=== PATIENT | male | born 1945 | race Caucasian/White ===

== ENCOUNTER → 2018-01-27 | Outpatient (CLI) | payer MEDICARE ==
[~2018-01-27] MED LIST: ALEVE220 M1 PO; ASPIRIN81 MG PO; FUROSEMIDE40 MG PO; HYDRALAZINE HCL25 MG PO; LOSARTAN POTAS100 MG PO; POTASSIUM CHLO10 ME1 PO; PROPRANOLOL HCL80 MG PO; TAMSULOSIN HCL0.4 MG PO; VITAMIN D10000 UNIT PO
--- NOTE | 2018-01-27 10:29 | Diagnostic Imaging Report ---
PROCEDURE:X-RAY ABDOMEN - KUB COMPARISON:None. INDICATIONS:CALCULUS OF KIDNEY FINDINGS: 3 mm calcification projects over the lower pole of the left renal shadow. No additional calcifications project over the renal shadows or expected ureteral courses. Evaluation of the kidneys is limited by overlying bowel contents. Small radiodensities likely related to surgical mesh are identified projecting over the right and left paravertebral regions. Atherosclerotic vascular calcifications. No mass effect or organomegaly. Multilevel degenerative disc changes of the lumbar spine. Bowel gas pattern is nonobstructive. CONCLUSION: Suspected at 3 mm left lower pole renal calculus. No additional plain film evidence of urolithiasis, though evaluation is limited as above. Dictated by: David Mixon M.D. on 01/27/2018 at 10:38 Electronically approved by: David Mixon M.D. on 01/27/2018 at 10:38
== END ==
LOC: RAD 09:37
PROVIDERS: ATTEND Urology
DX: N20.0 Calculus of kidney (principal)
CPT/HCPCS: 74018

== ENCOUNTER 2018-07-07 08:25 | Inpatient (IN) | payer MEDICARE ==
[2018-07-05 11:22] LABS: BASOPHILS # (AUTO) 0.1 (0.0-0.1); BASOPHILS % 0.9 % (0.0-1.0); EOSINOPHILS # (AUTO) 0.4 (0.0-0.4); EOSINOPHILS % 4.6 % (0.0-6.0); HEMATOCRIT 34.5 % (38.2-49.6); HEMOGLOBIN 11.2 g/dL (14.0-18.0); LYMPHOCYTES % 11.2 % (18.0-39.1); MEAN CORPUSCULAR HEMOGLOBIN 29.9 pg (28-32); MEAN CORPUSCULAR HGB CONC 32.5 g/dL (31-35); MONOCYTES # (AUTO) 0.7 (0.2-0.8); MONOCYTES % 7.4 % (4.4-11.3); NEUTROPHILS # (AUTO) 6.7 (2.1-6.9); NEUTROPHILS % 75.2 % (38.7-80.0); PLATELET COUNT 282 x10e3/uL (140-360); RED BLOOD COUNT 3.75 x10e6/uL (4.3-5.7); RED CELL DISTRIBUTION WIDTH 13.8 % (11.7-14.4)
[2018-07-05 11:35] LABS: ANION GAP 10.1 mmol/L (8-16); BLOOD UREA NITROGEN 9 mg/dL (7-26); BUN/CREATININE RATIO 11 (6-25); CARBON DIOXIDE 27 mmol/L (22-29); CHLORIDE 108 mmol/L (98-107); CREATININE, SERUM 0.85 mg/dL (0.72-1.25); EST GLOMERULAR FILTRATION RATE > 60 ML/MIN (60-); GLUCOSE 101 mg/dL (74-118); POTASSIUM 5.1 mmol/L (3.5-5.1); SODIUM 140 mmol/L (136-145)
--- NOTE | 2018-07-05 11:48 | Diagnostic Imaging Report ---
EXAMINATION: CHEST 2 VIEWS INDICATION: Preoperative radiographs. COMPARISON: None FINDINGS: TUBES and LINES: None. LUNGS/PLEURA: Lungs are well inflated. There is no evidence of pneumonia or pulmonary edema. There is focal opacity at the right costophrenic angle. No pleural effusion or pneumothorax. HEART AND MEDIASTINUM: There is mild cardiomegaly. There is prominence of the bilateral saul. BONES AND SOFT TISSUES: No acute osseous abnormality. UPPER ABDOMEN: No free air under the diaphragm. IMPRESSION: Mild cardiomegaly with prominence of the bilateral saul, which may reflect pulmonary arterial hypertension. Focal opacity within the right costophrenic angle. While this could represent atelectasis, a follow-up chest radiograph in 6-8 weeks is suggested to assess for resolution and exclude underlying nodule. Signed by: Dr. Cole Mackenzie MD on 07/05/2018 11:45 AM
[~2018-07-07] VITALS: Ht 167.6 cm; Wt 97.1 kg
[~2018-07-07 08:25] MED LIST changes: +COMBIGAN EYE DRO5 ML OP; +FINASTERIDE5 MG PO; +MYSOLINE50 MG PO; +[UNRECOGNIZED DRUG - OTHER] OP
--- OUTSIDE RECORDS SUMMARY | 2018-07-07 08:38 | XMS REPORT ---
Author Author [facility] Address Unknown Phone Unavailable Care Team Providers Care Roster Clerk Name Role Phone ALIN MEI Unavailable Unavailable Problems This patient has no known problems. Allergies, Adverse Reactions, Alerts This patient has no known allergies or adverse reactions. Medications This patient has no known medications. Results Test Description Test Time Test Comments Text Results Atomic Results Result Comments CHEST 2 VIEWS 2018-07-05 11:42:00 [place] [address] Patient Name: PORFIRIO LYLES MR #: [id number] : 1945 Age/Sex: 72/M Req #: [id number] Adm Physician: Ordered by: ALIN MEI MD Report #: [id number] Location: OR Room/Bed: Procedure: [id number] DX/CHEST 2 VIEWS Exam Date: 07/05/18 Exam Time: 1116 REPORT STATUS: Signed EXAMINATION: CHEST 2 VIEWS INDICATION: Preoperative radiographs. COMPARISON: None FINDINGS: TUBES and LINES: None. LUNGS/PLEURA: Lungs are well inflated. There is no evidence of pneumonia or pulmonary edema. There is focal opacity at the right costophrenic angle. No pleural effusion or pneumothorax. HEART AND MEDIASTINUM: There is mild cardiomegaly. There is prominence of the bilateral saul. BONES AND SOFT TISSUES: No acute osseous abnormality. UPPER ABDOMEN: No free air under the diaphragm. IMPRESSION: Mild cardiomegaly with prominence of the bilateral saul, which may reflect pulmonary arterial hypertension. Focal opacity within the right costophrenic angle. While this could represent atelectasis, a follow-up chest radiograph in 6-8 weeks is suggested to assess for resolution and exclude underlying nodule. Signed by: Dr. Susie Ding MD on 07/05/2018 11:45 AM Dictated By: SUSIE DING MD 1145 Transcribed By: NIURKA Levine on 07/05/18 1145 COPY TO: ALIN MEI MD ABDOMEN-1VIEW (KUB) 2018-01-27 10:38:00 [place] [address] Patient Name: PORFIRIO LYLES MR #: [id number] : 1945 Age/Sex: 72/M Req #: [id number] Adm Physician: Ordered by: ALIN MEI MD Report #: [id number] Location: [facility] Room/Bed: Procedure: [id number] DX/ABDOMEN-1VIEW (KUB) Exam Date: Exam Time: REPORT STATUS: Signed PROCEDURE: X-RAY ABDOMEN - KUB COMPARISON: None. INDIC ATIONS: CALCULUS OF KIDNEY FINDINGS: 3 mm calcification projects over the lower pole of the left renal shadow. No additional calcifications project over the renal shadows or expected ureteral courses. Evaluation of the kidneys is limited by overlying bowel contents. Small radiodensities likely related to surgical mesh are identified projecting over the right and left paravertebral regions. Atherosclerotic vascular calcifications. No mass effect or organomegaly. Multilevel degenerative disc changes of the lumbar spine. Bowel gas pattern is nonobstructive. CONCLUSION: Suspected at 3 mm left lower pole renal calculus. No additional plain film evidence of urolithiasis, though evaluation is limited as above. Dictated by: Miah Schaffre M.D. on 01/27/2018 at 10:38 Electronically approved by: Miah Schaffer M.D. on 01/27/2018 at 10:38 Dictated By: MIAH SCHAFFER MD 1038 Transcribed By: NORM on 01/27/18 1038 COPY TO: ALIN MEI MD
[2018-07-07] MEDS ORDERED: CEFTRIAXONE SOD 1 GM/NS 50 ML 50 ML IV ONE (08:54)
[2018-07-07] MEDS ORDERED: GENTAMICIN 80MG/NS 100 ML 200 ML IV ONE (08:54)
[2018-07-07] MEDS ORDERED: IOPAMIDOL 610MG/1ML 300 MG/ML VIAL IV ONE (09:13)
[2018-07-07] MEDS ORDERED: BELLADONNA/OPIUM 60 MG SUPP PR ONE (09:13)
[2018-07-07] MEDS ORDERED: ALBUTEROL SULF 0.083% NEB SOLN 3 ML NEB ONE (10:59)
[2018-07-07] MEDS ORDERED: FENTANYL CITRATE/PF 100MCG/2 ML INJ ONE ×2 (11:07→18:04)
[2018-07-07] MEDS ORDERED: DIPHENHYDRAMINE HCL 25 MG CAP PO PRN (11:15)
[2018-07-07] MEDS ORDERED: ONDANSETRON HCL INJ 2MG/ML 2ML 2 MG/ML VIAL IV PRN (11:15)
[2018-07-07] MEDS ORDERED: DIPHENHYDRAMINE HCL INJ 50 MG/ML VIAL IM PRN (11:15)
[2018-07-07] MEDS ORDERED: CEFTRIAXONE SOD 1 GM/NS 50 ML 50 ML IV SCH ×2 (11:15→16:00)
[2018-07-07] MEDS ORDERED: HYDROMORPHONE 2MG/ML 2 MG/ML ML ONE (11:32)
[2018-07-07 13:14] VITALS: BP 136/69
[2018-07-07] MEDS: D5.45%NS/KCL 20MEQ 1,000 ML IV SCH ×2 (13:51→19:07)
--- NOTE | 2018-07-07 14:00 | NUR ---
RECEIVED PATIENT FROM RECOVERY. PATIENT A/O X3, EVEN RESPIRATIONS ON 2LNC. WHEEZING IN THROAT. DE SOUZA IN PLACE WITH CONTINUOUS BLADDER IRRIGATION. URINE VAUGHN COLOR WITH FEW CLOTS. SCD'S AND NIKOLAI HOSE BILATERALLY. IV FLUIDS AT 125 CC/HR AT THIS TIME. NO SIGNS OF DISTRESS AT THIS TIME. CALL LIGHT IN REACH WILL CONTINUE TO MONITOR.
[2018-07-07 15:48] VITALS: BP 160/66
[2018-07-07 16:10] VITALS: BP 136/69
[2018-07-07 16:19] VITALS: BP 136/69
[2018-07-07] MEDS ORDERED: SODIUM CHLORIDE 0.9% 250ML 250 ML ONE (16:37)
[2018-07-07] MEDS: DOCUSATE SODIUM 100 MG CAP PO SCH (16:47)
--- NOTE | 2018-07-07 18:00 | NUR ---
PAGED DR. HASSAN REGARDING BLOOD PRESSURE 160/66. WAITING FOR CALL BACK AT THIS TIME.
[2018-07-07] MEDS ORDERED: LIDOCAINE HCL 2% LOCAL INJ 5 ML SDV VIAL INJ ONE (18:42)
[2018-07-07] MEDS ORDERED: ACETAMINOPHEN 1000 MG/100 ML IV ONE (18:42)
[2018-07-07] MEDS ORDERED: DEXAMETHASONE SOD PHOS INJ 4 MG/ML VIAL ONE (18:42)
[2018-07-07] MEDS ORDERED: SEVOFLURANE INHAL SOLN 250 ML PEN BTL ONE (18:42)
[2018-07-07] MEDS ORDERED: ONDANSETRON HCL INJ 2MG/ML 2ML 2 MG/ML VIAL ONE (18:42)
[2018-07-07] MEDS ORDERED: PROPOFOL IV EMULSION 10 MG/ML 20 ML VIAL ONE (18:42)
[2018-07-07 20:59] VITALS: BP 119/59
[2018-07-08] VITALS (7 sets, daily range): BP systolic 127–146; BP diastolic 58–66
--- NOTE | 2018-07-08 05:32 | NUR ---
SPOKE TO DR. ALIN MEI AT THIS TIME REGARDING IV FLUIDS AND WHEEZING. NEW ORDER RCV TO [facility]. Addendum: 07/08/18 at 0538 by Ritesh Sue RN ALSO ORDERED TO CHANGE ATTENDING TO DR. HASSAN
[2018-07-08 06:56] LABS: BASOPHILS % 0.3 % (0.0-1.0); EOSINOPHILS # (AUTO) 0.3 (0.0-0.4); EOSINOPHILS % 2.1 % (0.0-6.0); HEMATOCRIT 31.8 % (38.2-49.6); HEMOGLOBIN 10.2 g/dL (14.0-18.0); LYMPHOCYTES # (AUTO) 1.3 (1.0-3.2); LYMPHOCYTES % 9.5 % (18.0-39.1); MEAN CORPUSCULAR HEMOGLOBIN 29.7 pg (28-32); MEAN CORPUSCULAR HGB CONC 32.1 g/dL (31-35); MEAN CORPUSCULAR VOLUME 92.7 fL (81-99); MONOCYTES # (AUTO) 1.3 (0.2-0.8); MONOCYTES % 9.5 % (4.4-11.3); NEUTROPHILS # (AUTO) 10.3 (2.1-6.9); NEUTROPHILS % 78.1 % (38.7-80.0); PLATELET COUNT 228 x10e3/uL (140-360); RED BLOOD COUNT 3.43 x10e6/uL (4.3-5.7); RED CELL DISTRIBUTION WIDTH 14.2 % (11.7-14.4)
[2018-07-08 07:18] LABS: ANION GAP 8.2 mmol/L (8-16); BLOOD UREA NITROGEN 10 mg/dL (7-26); BUN/CREATININE RATIO 12 (6-25); CALCIUM 8.2 mg/dL (8.4-10.2); CARBON DIOXIDE 26 mmol/L (22-29); CHLORIDE 108 mmol/L (98-107); CREATININE, SERUM 0.84 mg/dL (0.72-1.25); EST GLOMERULAR FILTRATION RATE > 60 ML/MIN (60-); GLUCOSE 97 mg/dL (74-118); POTASSIUM 4.2 mmol/L (3.5-5.1); SODIUM 138 mmol/L (136-145)
[2018-07-08] MEDS ORDERED: ONDANSETRON HCL INJ 2MG/ML 2ML 2 MG/ML VIAL IV PRN (08:30)
[2018-07-08] MEDS ORDERED: MAGNESIUM/ALUMINUM/SIMETHICONE 30 ML UDC PO PRN (08:30)
[2018-07-08] MEDS: BRIMONIDINE/TIMOLOL (OPTH SOLN 5 ML DRPETTE OP SCH ×2 (09:00→17:13)
[2018-07-08] MEDS ORDERED: LOSARTAN POTASSIUM 100 MG TAB PO SCH (09:30)
[2018-07-08] MEDS ORDERED: FINASTERIDE 5 MG TAB PO SCH (09:30)
[2018-07-08] MEDS ORDERED: HYDRALAZINE HCL 25 MG TAB PO SCH (09:30)
[2018-07-08] MEDS ORDERED: TAMSULOSIN HCL 0.4 MG CAP PO SCH (09:30)
[2018-07-08] MEDS ORDERED: HYDRALAZINE HCL 25 MG TAB ONE (10:06)
[2018-07-08] MEDS ORDERED: TAMSULOSIN HCL 0.4 MG CAP ONE (10:06)
[2018-07-08] MEDS ORDERED: LOSARTAN POTASSIUM 100 MG TAB ONE (10:06)
[2018-07-08] MEDS ORDERED: FINASTERIDE 5 MG TAB ONE (10:06)
[2018-07-08] MEDS: DOCUSATE SODIUM 100 MG CAP PO SCH ×2 (10:26→17:13)
[2018-07-08] MEDS: LOSARTAN POTASSIUM 100 MG TAB PO SCH (10:26)
[2018-07-08] MEDS: HYDRALAZINE HCL 25 MG TAB PO SCH ×3 (10:26→20:50)
[2018-07-08] MEDS: FINASTERIDE 5 MG TAB PO SCH (10:27)
[2018-07-08] MEDS: TAMSULOSIN HCL 0.4 MG CAP PO SCH ×2 (10:27→20:50)
[2018-07-08] MEDS: PRIMIDONE 50 MG TAB PO SCH (20:50)
[2018-07-08] MEDS: [UNRECOGNIZED DRUG - OTHER] OP SCH (20:50)
[2018-07-08] MEDS: ACETAMINOPHEN/CODEINE 300MG - 30MG TAB PO PRN (20:51)
[2018-07-09] VITALS (8 sets, daily range): BP systolic 119–154; BP diastolic 56–69
[2018-07-09] MEDS: ACETAMINOPHEN/CODEINE 300MG - 30MG TAB PO PRN ×2 (03:33→11:55)
[2018-07-09 06:04] LABS: BASOPHILS # (AUTO) 0.1 (0.0-0.1); BASOPHILS % 0.6 % (0.0-1.0); EOSINOPHILS # (AUTO) 0.3 (0.0-0.4); EOSINOPHILS % 2.5 % (0.0-6.0); HEMATOCRIT 29.5 % (38.2-49.6); HEMOGLOBIN 9.4 g/dL (14.0-18.0); LYMPHOCYTES # (AUTO) 0.8 (1.0-3.2); LYMPHOCYTES % 6.7 % (18.0-39.1); MEAN CORPUSCULAR HEMOGLOBIN 29.4 pg (28-32); MEAN CORPUSCULAR HGB CONC 31.9 g/dL (31-35); MEAN CORPUSCULAR VOLUME 92.2 fL (81-99); MONOCYTES # (AUTO) 1.3 (0.2-0.8); MONOCYTES % 10.9 % (4.4-11.3); NEUTROPHILS # (AUTO) 9.4 (2.1-6.9); NEUTROPHILS % 78.7 % (38.7-80.0); PLATELET COUNT 216 x10e3/uL (140-360); RED CELL DISTRIBUTION WIDTH 14.2 % (11.7-14.4)
[2018-07-09 06:27] LABS: ANION GAP 9.7 mmol/L (8-16); BLOOD UREA NITROGEN 12 mg/dL (7-26); BUN/CREATININE RATIO 13 (6-25); CALCIUM 8.3 mg/dL (8.4-10.2); CARBON DIOXIDE 26 mmol/L (22-29); CHLORIDE 108 mmol/L (98-107); EST GLOMERULAR FILTRATION RATE > 60 ML/MIN (60-); GLUCOSE 106 mg/dL (74-118); POTASSIUM 4.7 mmol/L (3.5-5.1); SODIUM 139 mmol/L (136-145)
[2018-07-09] MEDS: BRIMONIDINE/TIMOLOL (OPTH SOLN 5 ML DRPETTE OP SCH ×2 (09:00→20:35)
--- NOTE | 2018-07-09 09:00 | NUR ---
PCT ATTEMPTED TO GET PT OOB, PT SAT ON SIDE OF BED, STATES "FEET HURT WHEN ATTEMPTING TO STAND", AWARE, ORDERS NOTED FOR PT TO ASSIST
[2018-07-09] MEDS: DOCUSATE SODIUM 100 MG CAP PO SCH ×2 (10:00→20:30)
[2018-07-09] MEDS: FINASTERIDE 5 MG TAB PO SCH (10:00)
[2018-07-09] MEDS: LOSARTAN POTASSIUM 100 MG TAB PO SCH (10:00)
[2018-07-09] MEDS: HYDRALAZINE HCL 25 MG TAB PO SCH ×3 (10:00→20:30)
[2018-07-09] MEDS: TAMSULOSIN HCL 0.4 MG CAP PO SCH ×2 (10:00→20:30)
--- NOTE | 2018-07-09 11:04 | NUR ---
VAUGHN COLORED URINE NOTED, MANUAL IRRIGATION, FEW SMALL CLOTS NOTED, DE SOUZA NOW DRAINING PINK TINGED URINE, CBI CONTINUES, CALL LIGHT WITHIN REACH
--- NOTE | 2018-07-09 15:03 | NUR ---
MD MEI INTO SEE PT, DISCUSSED POC, NO NEW ORDERS AT THIS TIME
--- NOTE | 2018-07-09 15:11 | NUR ---
CBI CONTINUES, URINE VAUGHN COLORED, PT REQUEST THAT HIS HOME MEDICATIONS BE ON SAME SCHEDULE HOME, EMAR NOTED, FEET PAIN "BETTER" "RIGHT NOW", CALL LIGHT WITHIN REACH
--- NOTE | 2018-07-09 16:40 | NUR ---
PT ENCOURAGED TO USE INCENTIVE SPIROMETRY, PT C/O REMOVING TAPE FROM LUE AND NOW HAS " A RED AREA"
[2018-07-09] MEDS ORDERED: NEOMYCIN/POLYMYX/BACITR OINT 0.9 GM PKT ONE (16:47)
[2018-07-09] MEDS ORDERED: ONDANSETRON HCL 4 MG ORAL DISINTEGRATING TAB PO PRN (17:30)
[2018-07-09] MEDS: NEOMYCIN/POLYMYXIN/BACITRACIN 15 GM TUBE TOP PRN (17:59)
--- NOTE | 2018-07-09 19:11 | NUR ---
WALKING ROUNDS PERFORMED, RECEIVED PT LAYING SEMI FOWLERS IN BED, AAOX3, RR EVEN AND NON-LABORED, O2 BY NC AT 2L. NO S/SX OF DISTRESS NOTED. PT RECEIVING CBI, URINE NOTED TO BE PALE PINK. LEFT PT LAYING SEMI FOWLERS IN BED, BED IN LOW LOCKED POSITION, SIDE RAILS UPX2, CALL LIGHT AND PHONE WITHIN REACH.
[2018-07-09] MEDS: PRIMIDONE 50 MG TAB PO SCH (20:30)
[2018-07-09] MEDS: [UNRECOGNIZED DRUG - OTHER] OP SCH (20:30)
[2018-07-10] VITALS (7 sets, daily range): BP systolic 105–155; BP diastolic 52–67
--- NOTE | 2018-07-10 00:45 | NUR ---
APPLIED ALTERNATING AIR PUMP TO MATTRESS.
[2018-07-10] MEDS: HYDRALAZINE HCL 25 MG TAB PO SCH ×3 (05:39→21:21)
[2018-07-10 06:17] LABS: BASOPHILS # (AUTO) 0.1 (0.0-0.1); BASOPHILS % 0.5 % (0.0-1.0); EOSINOPHILS # (AUTO) 0.2 (0.0-0.4); EOSINOPHILS % 2.2 % (0.0-6.0); HEMATOCRIT 31.3 % (38.2-49.6); HEMOGLOBIN 9.4 g/dL (14.0-18.0); LYMPHOCYTES # (AUTO) 0.8 (1.0-3.2); LYMPHOCYTES % 8.5 % (18.0-39.1); MEAN CORPUSCULAR HEMOGLOBIN 29.1 pg (28-32); MEAN CORPUSCULAR VOLUME 96.9 fL (81-99); MONOCYTES # (AUTO) 1.2 (0.2-0.8); MONOCYTES % 12.4 % (4.4-11.3); NEUTROPHILS # (AUTO) 7.5 (2.1-6.9); NEUTROPHILS % 75.8 % (38.7-80.0); PLATELET COUNT 148 x10e3/uL (140-360); RED BLOOD COUNT 3.23 x10e6/uL (4.3-5.7)
[2018-07-10 06:32] LABS: ANION GAP 8.2 mmol/L (8-16); BLOOD UREA NITROGEN 12 mg/dL (7-26); BUN/CREATININE RATIO 16 (6-25); CALCIUM 8.3 mg/dL (8.4-10.2); CARBON DIOXIDE 25 mmol/L (22-29); CHLORIDE 107 mmol/L (98-107); CREATININE, SERUM 0.76 mg/dL (0.72-1.25); EST GLOMERULAR FILTRATION RATE > 60 ML/MIN (60-); GLUCOSE 106 mg/dL (74-118); POTASSIUM 4.2 mmol/L (3.5-5.1); SODIUM 136 mmol/L (136-145)
[2018-07-10] MEDS: BRIMONIDINE/TIMOLOL (OPTH SOLN 5 ML DRPETTE OP SCH ×2 (09:12→16:55)
[2018-07-10] MEDS: DOCUSATE SODIUM 100 MG CAP PO SCH ×2 (09:12→21:21)
[2018-07-10] MEDS: TAMSULOSIN HCL 0.4 MG CAP PO SCH ×2 (09:13→21:21)
[2018-07-10] MEDS: LOSARTAN POTASSIUM 100 MG TAB PO SCH (09:13)
[2018-07-10] MEDS: FINASTERIDE 5 MG TAB PO SCH (09:13)
--- NOTE | 2018-07-10 11:26 | NUR ---
DE SOUZA CATH D/C AT THIS TIME PER ORDERS. PT TOLERATED WELL. INSTRUCTED TO USE URINAL WITH EACH VOID FOR SERIAL URINE COLLECTION. PT VERBALIZED UNDERSTANDING. URINAL PROVIDED. INSTRUCTED TO CALL FOR ASSISTANCE.
--- NOTE | 2018-07-10 15:07 | NUR ---
PT VOIDED 65 ML AT THIS TIME.
[2018-07-10] MEDS: ACETAMINOPHEN 325 MG TAB PO PRN (16:11)
--- NOTE | 2018-07-10 16:30 | NUR ---
PT VOIDED 40 ML AT THIS TIME. URINE CONTINUES DARK RED IN COLOR.
--- NOTE | 2018-07-10 17:36 | NUR ---
6 HOURS POST D/C DE SOUZA PT HAS ONLY VOIDED TOTAL OF 105 ML. BLADDER SCAN COMPLETE AT THIS TIME [address] Son MEI AT THIS TIME FOR ORDERS. AWAITING CALL BACK.
--- NOTE | 2018-07-10 17:40 | NUR ---
RECEIVED CALL BACK AND SPOKE WITH DR. Son MEI STATES TO CONTINUE OBSERVING PT AND ENCOURAGE AMBULATION. NOTIFIED PT IS VERY WEAK AND CANNOT AMBULATE, RECEIVED ORDERS FOR SNF EVAL. NO ADDITIONAL ORDERS AT THIS TIME.
--- NOTE | 2018-07-10 19:10 | NUR ---
WALKING ROUNDS PERFORMED, RECEIVED PT LAYING SEMI FOWLERS IN BED, AAOX3, RR EVEN AND NON-LABORED, ON RA. NO S/SX OF DISTRESS NOTED. COLLECTED 50ML OF URINE FOR COLLECTION, DISPOSABLE KIESHA UNDER PATIENT CHANGED AT THIS TIME D/T PT LEAKED LARGE AMOUNT OF URINE TO PAD. LEFT PT LAYING SEMI FOWLERS IN BED, BED IN LOW LOCKED POSITION, SIDE RAILS UPX2, CALL LIGHT AND PHONE WITHIN REACH.
[2018-07-10] MEDS: NEOMYCIN/POLYMYXIN/BACITRACIN 15 GM TUBE TOP PRN (21:21)
[2018-07-10] MEDS: [UNRECOGNIZED DRUG - OTHER] OP SCH (21:21)
[2018-07-10] MEDS: PRIMIDONE 50 MG TAB PO SCH (21:21)
[2018-07-11] VITALS (8 sets, daily range): BP systolic 108–143; BP diastolic 52–88
[2018-07-11] MEDS: HYDRALAZINE HCL 25 MG TAB PO SCH (05:25)
[2018-07-11 08:12] LABS: BASOPHILS % 0.4 % (0.0-1.0); EOSINOPHILS # (AUTO) 0.2 (0.0-0.4); EOSINOPHILS % 2.1 % (0.0-6.0); HEMATOCRIT 27.6 % (38.2-49.6); LYMPHOCYTES # (AUTO) 0.6 (1.0-3.2); MEAN CORPUSCULAR HEMOGLOBIN 29.4 pg (28-32); MEAN CORPUSCULAR HGB CONC 32.6 g/dL (31-35); MEAN CORPUSCULAR VOLUME 90.2 fL (81-99); MONOCYTES # (AUTO) 1.1 (0.2-0.8); MONOCYTES % 10.5 % (4.4-11.3); NEUTROPHILS % 80.6 % (38.7-80.0); PLATELET COUNT 218 x10e3/uL (140-360); RED BLOOD COUNT 3.06 x10e6/uL (4.3-5.7); RED CELL DISTRIBUTION WIDTH 13.9 % (11.7-14.4)
[2018-07-11] MEDS: DOCUSATE SODIUM 100 MG CAP PO SCH ×2 (08:17→19:29)
[2018-07-11] MEDS: FINASTERIDE 5 MG TAB PO SCH (08:25)
[2018-07-11] MEDS: TAMSULOSIN HCL 0.4 MG CAP PO SCH ×2 (08:25→20:09)
[2018-07-11] MEDS: BRIMONIDINE/TIMOLOL (OPTH SOLN 5 ML DRPETTE OP SCH ×2 (08:25→16:47)
[2018-07-11] MEDS: LOSARTAN POTASSIUM 100 MG TAB PO SCH (08:26)
[2018-07-11 08:27] LABS: BLOOD UREA NITROGEN 16 mg/dL (7-26); BUN/CREATININE RATIO 19 (6-25); CALCIUM 8.6 mg/dL (8.4-10.2); CARBON DIOXIDE 26 mmol/L (22-29); CHLORIDE 102 mmol/L (98-107); CREATININE, SERUM 0.86 mg/dL (0.72-1.25); EST GLOMERULAR FILTRATION RATE > 60 ML/MIN (60-); GLUCOSE 111 mg/dL (74-118); SODIUM 134 mmol/L (136-145)
[2018-07-11] MEDS ORDERED: POTASSIUM CHLORIDE 10MEQ EA PO ONE (09:30)
[2018-07-11] MEDS ORDERED: FUROSEMIDE INJ 10 MG/ML 4 ML VIAL IV ONE (09:30)
[2018-07-11] MEDS: IRON SUCROSE 100 MG in SODIUM CHLORIDE 0.9% 100 ML 100 ML IV SCH (10:03)
--- NOTE | 2018-07-11 12:31 | NUR ---
Patient lives alone and has a brother who lives close by. Patient receives support from his brother and has not had home care services in the past. Patient uses a cane and walker to assist with his mobility and a stool to shower. Patient PCP is MD Gus Mejia. Patient states there has been no changes in his medication and he understands use/need for them all. Order for SNF evaluation has been sent to [facility]. Patient is aware and in agreement to discharge plan. Patient provided with a list of SNF covered by his insurance and ALOC. Patient would like to speak with his family regarding choices. CM to follow up with his choice.
--- NOTE | 2018-07-11 14:30 | NUR ---
20 F COUDE CATHETER PLACED WITH 20 CC BALLOON OF STERILE WATER PER DR. Son MEI'S ORDERS. PT TOLERATED WELL 250 ML DARK RED URINE OUTPUT.
--- NOTE | 2018-07-11 19:22 | NUR ---
WALKING ROUNDS PERFORMED, RECEIVED PT LAYING SEMI FOWLERS IN BED, AAOX3, RR EVEN AND NON-LABORED, ON RA. NO S/SX OF DISTRESS NOTED. DE SOUZA NOTED TO BE INTACT DRAINING VAUGHN COLORED URINE. LEFT PT LAYING SEMI FOWLERS IN BED, BED IN LOW LOCKED POSITION, SIDE RAILS UPX2, CALL LIGHT AND PHONE WITHIN REACH.
[2018-07-11] MEDS: ACETAMINOPHEN 325 MG TAB PO PRN (20:09)
[2018-07-11] MEDS: PRIMIDONE 50 MG TAB PO SCH (20:09)
[2018-07-11] MEDS: [UNRECOGNIZED DRUG - OTHER] OP SCH (20:09)
[2018-07-12] VITALS: BP 114/56
[2018-07-12] MEDS ORDERED: POTASSIUM CHLORIDE 10MEQ EA PO SCH (06:00)
[2018-07-12] MEDS: FUROSEMIDE 40 MG TAB PO SCH ×2 (06:27→09:23)
[2018-07-12 06:44] LABS: BASOPHILS % 0.5 % (0.0-1.0); EOSINOPHILS # (AUTO) 0.3 (0.0-0.4); EOSINOPHILS % 3.6 % (0.0-6.0); HEMATOCRIT 28.7 % (38.2-49.6); HEMOGLOBIN 9.1 g/dL (14.0-18.0); LYMPHOCYTES # (AUTO) 0.8 (1.0-3.2); LYMPHOCYTES % 9.1 % (18.0-39.1); MEAN CORPUSCULAR HEMOGLOBIN 29.3 pg (28-32); MEAN CORPUSCULAR HGB CONC 31.7 g/dL (31-35); MEAN CORPUSCULAR VOLUME 92.3 fL (81-99); MONOCYTES % 11.8 % (4.4-11.3); NEUTROPHILS # (AUTO) 6.4 (2.1-6.9); NEUTROPHILS % 74.4 % (38.7-80.0); PLATELET COUNT 239 x10e3/uL (140-360); RED BLOOD COUNT 3.11 x10e6/uL (4.3-5.7); RED CELL DISTRIBUTION WIDTH 13.9 % (11.7-14.4)
[2018-07-12 06:55] LABS: ANION GAP 10.1 mmol/L (8-16); BLOOD UREA NITROGEN 15 mg/dL (7-26); BUN/CREATININE RATIO 19 (6-25); CALCIUM 8.5 mg/dL (8.4-10.2); CARBON DIOXIDE 27 mmol/L (22-29); CHLORIDE 102 mmol/L (98-107); CREATININE, SERUM 0.77 mg/dL (0.72-1.25); EST GLOMERULAR FILTRATION RATE > 60 ML/MIN (60-); GLUCOSE 107 mg/dL (74-118); POTASSIUM 4.1 mmol/L (3.5-5.1); SODIUM 135 mmol/L (136-145)
[2018-07-12] MEDS: ACETAMINOPHEN 325 MG TAB PO PRN ×2 (06:57→16:35)
--- NOTE | 2018-07-12 07:24 | NUR ---
Received patient in report this morning. Patient is resting in bed, semifowlers, at this time. Jose draining red urine. Patient reported pain and asked for tylenol which was given. Patient A&Ox3. No S&S of distress noted. Bed locked in lowest position. Call light in reach.
[2018-07-12 07:25] VITALS: BP 143/65
[2018-07-12 08:00] VITALS: BP 137/62
[2018-07-12 08:09] VITALS: BP 137/62
[2018-07-12] MEDS: TAMSULOSIN HCL 0.4 MG CAP PO SCH (09:23)
[2018-07-12] MEDS: DOCUSATE SODIUM 100 MG CAP PO SCH (09:23)
[2018-07-12] MEDS: FINASTERIDE 5 MG TAB PO SCH (09:24)
[2018-07-12] MEDS: BRIMONIDINE/TIMOLOL (OPTH SOLN 5 ML DRPETTE OP SCH ×2 (09:25→16:34)
[2018-07-12] MEDS: IRON SUCROSE 100 MG in SODIUM CHLORIDE 0.9% 100 ML 100 ML IV SCH (09:28)
--- NOTE | 2018-07-12 10:15 | NUR ---
Patient requested being cleaned, urine leaking around hubbard. Advanced catheter, irrigated, and urine began flowing again. 60mL removed in irrigation syringe. Cleaned patient. Noticed petechiae with redness on back, turned patient to right side and initiated [id number]. Turned on alternating pressure pump. Will continue to monitor.
--- NOTE | 2018-07-12 10:45 | NUR ---
Spoke to pt at bedside to follow up on SNF choice. Pt did not make a decision yet. Stated he wants to speak to his brother. CM left list of in network facilities with pt. CM will follow up this afternoon.
--- NOTE | 2018-07-12 11:05 | NUR ---
Pt gave choice for [facility]. Signed choice letter placed in chart. Copy to pt. Arminda with admissions at [facility] was informed and will be by shortly to [facility].
[2018-07-12 12:31] VITALS: BP 114/55
--- NOTE | 2018-07-12 15:31 | NUR ---
Received MOT for transfer to SNF from [facility] with admissions. [facility] at [address] [place] [phone] Susana Rivas to attend RTF was completed and placed at nurses station. AMRITA Escobar was informed.
[2018-07-12 16:05] VITALS: BP 154/68
--- NOTE | 2018-07-12 16:14 | NUR ---
Nutrition Screen Note RD Recommendation for Physician: -Continue regular diet. Plan of Care: RD following, monitoring for tolerance and adequacy Nutrition reason for involvement: LOS Primary Diagnose(s): Prostatism PMH: Could not find PMH recorded within EMR. Ht: 66 in Wt: 214 lb BMI: 34.5 kg/m2 IBW: [address] Assessment: (07/12) 72 YOM admitted for prostatism who was seen d/t LOS. Pt reports that he has a good appetite here in the hospital and denies any recent weight loss. Pt is completing 100% of meals per EMR. Pt denies N/V or any chewing/swallowing difficulty. Pt has c/o constipation- pt is on colace. Pt was discussed in rounds- pt may possibly be leaving to SNF soon. Chart reviewed. Labs and meds reviewed. Will continue to monitor. Current Diet: regular Malnutrition Evaluation (07/12) The patient does not meet criteria for a specified degree of malnutrition at this time. Will re-evaluate at follow-up as appropriate. Diet Education Needs Assessment: Diet education not indicated, pt is on regular diet. Nutrition Care Level: low Signed: Rosalina Mcfarland, RD, LD
--- NOTE | 2018-07-12 17:00 | NUR ---
Called report to [facility] and spoke with ALETA Araujo. Report given. Awaiting ambulance service for transfer.
[2018-07-13] MEDS ORDERED: [UNRECOGNIZED DRUG - OTHER] PO SCH (09:00)
[2018-07-13] MEDS ORDERED: VITAMIN D3 PO SCH (09:00)
--- NOTE | 2018-08-05 07:10 | Operative Report ---
DATE OF PROCEDURE: 07/07/2018 SURGEON: Yuniro Del Rio MD PREOPERATIVE DIAGNOSES: 1. Obstructive benign prostatic hypertrophy. 2. History of stone. POSTOPERATIVE DIAGNOSES: 1. Obstructive benign prostatic hypertrophy. 2. History of stone. 3. Urethral stricture disease. OPERATIONS PERFORMED: 1. Cystourethroscopy with calibration and dilation of urethral stricture (separately performed for the diagnosis of stricture). 2. Cystourethroscopy with bilateral ureteral catheterization and retrograde ureteropyelography (separately performed for the diagnosis of the prior urolithiasis). 3. Interpretation of retrograde ureteropyelography. 4. Supervision of fluoroscopy, no radiologist present. 5. Cystourethroscopy with transurethral resection of prostate utilizing a plasma button electrode. ANESTHESIA: General. COMPLICATIONS: None. CLINICAL SUMMARY: Gus Schulte is a 72-year-old man with the above preoperative diagnoses. He is brought for the above surgery. He is aware of the risks of bleeding, infection, injury to adjacent structures, need for additional procedures and elected to proceed. OPERATIVE PROCEDURE IN DETAIL: Gus Schulte was properly identified, taken to the operating room, placed on the cystoscopy table in supine position. Anesthesia was uneventfully begun. The patient was carefully gently repositioned in the dorsal lithotomy position with all pressure points were padded. His genitalia were prepared and draped in usual sterile fashion. A 22.5-Stateless cystoscope sheath with the obturator in place could be barely placed in the patient's urethral meatus given the fossa navicular stricture. We calibrated the stricture to approximately 18-Stateless in size and serially dilated to 28-Stateless in size. Following this, we were easily able to guide the cystoscope sheath through the otherwise unremarkable urethra through the normal sphincteric region and through the prostate bed, which was significant for kissing lateral lobes with visual obstruction and inflammation on an elevated median bar. Panendoscopy of the bladder revealed trabeculations, but no tumors and no diverticula and no stones. Ureteral catheter was used to cannulate each ureter and retrograde ureteropyelogram was performed. Interpretation of retrograde ureteropyelography: Contrast was instilled in a retrograde fashion bilaterally. There were no tumors, no stones, no diverticula. Unobstructed drainage was observed fluoroscopically. The 3 mm stone that was noted on prior CT in the left lower pole could not be visualized on today's examination. Unobstructed drainage was observed fluoroscopically. The cystoscope was withdrawn and a resectoscope was atraumatically placed. We proceeded with performing transurethral resection of prostate. With the plasma button electrode, we vaporized the prostate from the bladder neck to maneuver past the verumontanum and down the surgical capsule. Electrocautery was utilized to achieve hemostasis. The resectoscope was then withdrawn. Jose catheter was placed. It was irrigated to and fro to ensure it works properly. Plans will be to follow the patient up on a long-term basis. Yunior MD HECTOR Del Rio/MODL /[id number] cc: Gus Mejia
== END 2018-07-12 19:24 | DRG 714 ==
LOC: OR 08:25 → PACU V 11:10 → MED/SURG 13:11
PROVIDERS: ADMIT Internal Medicine; ATTEND Internal Medicine
PROC: 0V508ZZ Destruction of Prostate, Via Natural or Artificial Opening Endoscopic (ICD-10-PCS; principal; 2018-07-07 11:00)
PROC: 0T7D8ZZ Dilation of Urethra, Via Natural or Artificial Opening Endoscopic (ICD-10-PCS; 2018-07-07 11:00)
DX: N40.1 Benign prostatic hyperplasia with lower urinary tract symptoms (principal); R33.8 Other retention of urine; Z88.8 Allergy status to other drugs, medicaments and biological substances; N31.9 Neuromuscular dysfunction of bladder, unspecified; E66.9 Obesity, unspecified; Z68.34 Body mass index [BMI] 34.0-34.9, adult; Z87.442 Personal history of urinary calculi; N35.919 Unspecified urethral stricture, male, unspecified site; M19.90 Unspecified osteoarthritis, unspecified site; R31.0 Gross hematuria; R53.81 Other malaise; R60.0 Localized edema; I11.0 Hypertensive heart disease with heart failure; I50.9 Heart failure, unspecified
CPT/HCPCS: 36415; 71046; 74420; 80048; 85025; 93005; 97139; C1758; J0696; J1100; J1580; J1756; J1940; J2001; J2405; J7050

== ENCOUNTER → 2019-06-01 | Outpatient (CLI) | payer MEDICARE ==
--- NOTE | 2019-06-01 09:42 | Diagnostic Imaging Report ---
Exam: KUB - 2 views Indication: Renal calculus Comparison: KUB 01/27/2018 Findings: Unchanged 3 mm calcific density projecting over the lateral midpole left kidney. No radiographically apparent right renal calculi. Status post abdominal hernia mesh repair. Nonobstructive bowel gas pattern. No free air. Prominent degenerative changes of the visualized spine. Mild degenerative changes of both hip joints. Atherosclerotic arterial calcifications. Partially visualized lung bases appear clear. Impression: 3 mm left lateral renal calculus. No radiographically apparent right renal calculus. Signed by: Venus Delgadillo MD on 06/01/2019 9:39 AM
== END ==
LOC: RAD 09:12
PROVIDERS: ATTEND Urology
DX: N20.0 Calculus of kidney (principal)
CPT/HCPCS: 74018

== ENCOUNTER → 2019-11-30 | Outpatient (CLI) | payer MEDICARE ==
--- NOTE | 2019-11-30 09:49 | Diagnostic Imaging Report ---
Exam: KUB - Indication: Renal calculus Comparison: June 01, 2019. KUB 01/27/2018 Findings: Unchanged 3 mm calcific density projecting over the lateral midpole left kidney. No radiographically apparent right renal calculi. Status post abdominal hernia mesh repair. Nonobstructive bowel gas pattern. No free air. Prominent degenerative changes of the visualized spine. Mild degenerative changes of both hip joints. Atherosclerotic arterial calcifications. Partially visualized lung bases appear clear. Impression: 3 mm left lateral renal calculus. No radiographically apparent right renal calculus. Signed by: Dr. Mazin Ball M.D. on 11/30/2019 9:45 AM
== END ==
LOC: RAD 09:11
PROVIDERS: ATTEND Urology
DX: N20.0 Calculus of kidney (principal)
CPT/HCPCS: 74018

== ENCOUNTER → 2020-05-09 | Outpatient (CLI) | payer MEDICARE | LOC: RAD 09:57 | PROVIDERS: ATTEND Urology | DX: N20.0 Calculus of kidney (principal) | CPT/HCPCS: 74018 ==

== ENCOUNTER → 2020-11-21 | Outpatient (CLI) | payer MEDICARE | LOC: RAD 09:47 | PROVIDERS: ATTEND Urology | DX: N20.0 Calculus of kidney (principal) | CPT/HCPCS: 74018 ==

== ENCOUNTER → 2021-05-29 | Outpatient (CLI) | payer MEDICARE | LOC: RAD 09:39 | PROVIDERS: ATTEND Urology | DX: N20.0 Calculus of kidney (principal) | CPT/HCPCS: 74018 ==

== ENCOUNTER → 2021-11-27 | Outpatient (CLI) | payer MEDICARE | LOC: RAD 09:31 | PROVIDERS: ATTEND Urology | DX: N20.0 Calculus of kidney (principal) | CPT/HCPCS: 74018 ==

== ENCOUNTER → 2022-05-21 | Outpatient (CLI) | payer MEDICARE | LOC: RAD 10:20 | PROVIDERS: ATTEND Urology | DX: N20.0 Calculus of kidney (principal) | CPT/HCPCS: 74018 ==